=== PATIENT | male | born 1990 | race Caucasian/White ===

== ENCOUNTER 2022-03-12 13:45 | Outpatient (RCR) | payer OTHER, SELFPAY ==
--- NOTE | 2022-01-21 13:20 | PT.OPDN ---
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 Medical Diagnosis Back pain M54.9 Treating Diagnosis injury low back S39.92XA low back pain M54.50 Referring MD Nikunj Angeles MD Subjective Subjective ran out of diflucan havent gotten it refilled yet. there is a noticable difference when I stopped taking it was doing better then had one time this weekend when it was so bad I had to lie down - was not like this since September. 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 tolerates carrying in B front of body and <35# unilateral can hold 45 sec plank Patient Instructed in Risks/Benefits Yes Therapeutic Exercise Therapeutic Exercise Minutes (minutes) 40 Therapeutic Exercise: To Restore - bike recumbent 5.0 resist x Functional Status 8 min - cat camel x 10 w breath - quadruped opp UE x 10, LE x 10, bird dog B x 10 - forward bent at plinth with 45 deg abduct/ext LE x 10 each side, then hip ext x 10 each side - golfers lift at chair x 10 B - warrior 1 arms from sides to overhead x 10 B - back ext machine 50# 2 x 10 - planks 3 x 45 sec - happy baby stretch B 2 x 30 sec, unilateral 2 x 30 sec B - reach toward opp foot then full upright x 10 - back ext 2 x 5, suresh pose at counter 2 x 30 sec - sidelying ihip abduction 5 sec hold x 10 B, circles CW, CCW x 10 - Manual Therapy Techniques Manual Therapy Minutes (minutes) 15 Manual Therapy Techniques STM MFR to lumbar, hip region in sidelying. MET Treatment Minutes Timed Code Treatment Minutes 55 Total Treatment Time 55 Billing Units Manual Therapy Units 1 Therapeutic Exercise Units 3 Assessment/Impression Assessment/Impression batool continues to improve in tolerance of activity and ability to work and position self appropriately. He has been intermittently consistent with home program and has demonstrated knowledge and understanding of same. He currently has 3 sessions left and should ideally at that time have good grasp of which ex hew needs to perform consistently. However [place] does still continue to have ongoing pain and soreness out of proportion to what would be expected by this stage of healing. He does see MD tomorrow, recommend he discuss with MD future direction due to ongoing nature of his pain management. He may benefit from referral to outside loss mitigation specialist, structural steel painter, or work conditioning program to further strengthen and stabilize .core Plan of Care Physical Therapy Goals SHORT TERM GOALS: to be completed within 3 weeks MET 1. Pt will demonstrate improved tolerance for lumbar flexion ROM in order to increase function with sit to stand transfers and work duties. 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 Pt will report pain less than 5/10 with ADLs and work duties. 2. Pt will report improved tolerance for bed mobility. MET 3. Pt will demo lifting techniques appropriate to his job and life for reduced risk of reinjury. MET 4. Pt will demonstrate independence with individualized HEP for self symptom management and to carryover therapeutic gains following discharge from PT services. Daily Plan of Care Continue per POC Daily Plan of Care Comments strengthening
== END 2022-03-16 08:02 | disposition home or self-care (01) ==
PROVIDERS: PCP Family Medicine; Visit Provider Family Medicine
DX: M54.9 Dorsalgia, unspecified (principal); Z51.89 Encounter for other specified aftercare
CPT/HCPCS: 97012; 97032; 97110; 97140; 97161; 97530